=== PATIENT | female | born 1985 | race Caucasian/White ===

== ENCOUNTER → 2017-11-28 | Outpatient (CLI) | payer OTHER | LOC: SUN.DIA 11:10 | DX: O24.419 Gestational diabetes mellitus in pregnancy, unspecified control (principal); Z3A.31 31 weeks gestation of pregnancy; Z71.3 Dietary counseling and surveillance | CPT/HCPCS: G0108 ==

== ENCOUNTER → 2017-12-06 | Outpatient (CLI) | payer OTHER | LOC: SUN.DIA 12:22 | DX: O24.419 Gestational diabetes mellitus in pregnancy, unspecified control (principal); Z3A.32 32 weeks gestation of pregnancy; Z71.3 Dietary counseling and surveillance | CPT/HCPCS: G0108 ==

== ENCOUNTER → 2017-12-20 | Outpatient (CLI) | payer OTHER | LOC: SUN.DIA 12:19 | DX: O24.419 Gestational diabetes mellitus in pregnancy, unspecified control (principal); Z3A.34 34 weeks gestation of pregnancy; Z71.3 Dietary counseling and surveillance | CPT/HCPCS: G0108 ==

== ENCOUNTER → 2018-01-03 | Outpatient (CLI) | payer OTHER | LOC: SUN.DIA 13:38 | DX: O24.419 Gestational diabetes mellitus in pregnancy, unspecified control (principal); Z3A.36 36 weeks gestation of pregnancy; Z71.3 Dietary counseling and surveillance | CPT/HCPCS: G0108 ==

== ENCOUNTER 2018-01-19 10:04 | Outpatient (CLI) | payer OTHER ==
[~2018-01-19] VITALS: Ht 157.5 cm; Wt 78.6 kg
[2018-01-19 10:08] VITALS: BP 136/90; PULSE 80; TEMP 99
[2018-01-19] MEDS ORDERED: PRENATAL (10:13)
[2018-01-19 10:35] VITALS: BP 129/83; PULSE 71
== END 2018-01-19 10:45 | disposition home or self-care (01) ==
LOC: LDR 10:04 → LDRO 10:04
DX: Z04.3 Encounter for examination and observation following other accident (principal); O9A.213 Injury, poisoning and certain other consequences of external causes complicating pregnancy, third trimester; W00.0XXA Fall on same level due to ice and snow, initial encounter; Z3A.37 37 weeks gestation of pregnancy
CPT/HCPCS: OP

== ENCOUNTER → 2018-01-24 | Outpatient (CLI) | payer OTHER ==
[~2018-01-24] MED LIST: PRENATAL
== END ==
LOC: SUN.DIA 12:28
DX: O24.419 Gestational diabetes mellitus in pregnancy, unspecified control (principal); Z3A.39 39 weeks gestation of pregnancy; Z71.3 Dietary counseling and surveillance
CPT/HCPCS: G0108

== ENCOUNTER 2018-01-31 07:32 | Outpatient (CLI) | payer OTHER ==
[~2018-01-31] VITALS: Ht 157.5 cm; Wt 80.0 kg
[2018-01-31 07:38] VITALS: BP 127/85; PULSE 80; TEMP 98.1
[2018-02-01] MEDS ORDERED: PERCOCET 325 MG1 TA2 PO (17:58)
[2018-02-01] MEDS ORDERED: MOTRIN 800800 MG/TAB PO (17:58)
== END 2018-01-31 08:40 | disposition home or self-care (01) ==
LOC: LDR 07:32 → LDRO 07:32
DX: O46.8X3 Other antepartum hemorrhage, third trimester (principal); Z3A.39 39 weeks gestation of pregnancy
CPT/HCPCS: OP

== ENCOUNTER 2018-01-31 14:43 | Inpatient (IN) | payer OTHER ==
[2018-01-31] VITALS (23 sets, daily range): BP systolic 112–146; BP diastolic 60–92; PULSE 63–100; TEMP 97.6–98.3
[~2018-01-31] VITALS: Ht 157.5 cm; Wt 80.0 kg
[2018-01-31 16:29] LABS: BASO % 0.2 % (0.0-2.0); EOS % 0.2 % (0-4.0); GRAN # 10.7 (1.4-6.5); GRAN % 83.8 % (42.2-75.2); HEMATOCRIT 40.3 % (37.0-47.0); HEMOGLOBIN 13.7 g/dl (12.5-16.0); LYMPH # 1.3 (1.2-3.4); LYMPH % 10.3 % (20.0-51.0); MEAN CELL VOLUME 85 fl (80.0-100.0); MEAN CORPUSCULAR HEMOGLOBIN 29 pg (27.0-31.0); MEAN CORPUSCULAR HGB CONC 34 g/dl (33.0-37.0); MEAN PLATELET VOLUME 10.5 fl (7.4-10.4); MONO # 0.7 (0.1-0.6); MONO % 5.1 % (1.7-9.3); PLATELET COUNT 176 K/mm3 (130-400); RED BLOOD COUNT 4.75 M/mm3 (4.10-5.30); REDCELL DISTRIBUTION WIDTH-CV 12.9 % (11.5-14.5)
[2018-02-01] VITALS (18 sets, daily range): BP systolic 117–155; BP diastolic 68–93; PULSE 78–109; TEMP 97.6–99
[2018-02-01 16:52] LABS: BASO % 0.3 % (0.0-2.0); EOS # 0.1 (0.0-0.7); EOS % 0.7 % (0-4.0); GRAN # 10.9 (1.4-6.5); GRAN % 77.1 % (42.2-75.2); LYMPH # 2.2 (1.2-3.4); LYMPH % 15.1 % (20.0-51.0); MEAN CELL VOLUME 86 fl (80.0-100.0); MEAN CORPUSCULAR HGB CONC 34 g/dl (33.0-37.0); MEAN PLATELET VOLUME 10.7 fl (7.4-10.4); MONO # 0.9 (0.1-0.6); MONO % 6.4 % (1.7-9.3); PLATELET COUNT 150 K/mm3 (130-400); RED BLOOD COUNT 3.89 M/mm3 (4.10-5.30); REDCELL DISTRIBUTION WIDTH-CV 13.2 % (11.5-14.5)
[2018-02-01 16:53] LABS: HEMATOCRIT 33.3 % (37.0-47.0); HEMOGLOBIN 11.2 g/dl (12.5-16.0); MEAN CORPUSCULAR HEMOGLOBIN 29 pg (27.0-31.0)
[2018-02-01 17:00] LABS: ALBUMIN 2.9 gm/dL (3.5-5.0); BILIRUBIN,TOTAL 0.1 mg/dL (0.0-1.0); CALCIUM 8.3 mg/dL (8.4-10.2); CREATININE, serum 0.57 mg/dL (0.52-1.25); POTASSIUM 4.3 mmol/L (3.4-5.0); TOTAL PROTEIN 5.8 gm/dL (6.4-8.2)
[2018-02-01] MEDS ORDERED: PERCOCET 325 MG1 TA2 PO (17:58)
[2018-02-01] MEDS ORDERED: MOTRIN 800800 MG/TAB PO (17:58)
[2018-02-01 23:28] LABS: COLLECTION METHOD CLEAN CATCH
[2018-02-01 23:37] LABS: PH 6 (5-8); SQUAMOUS EPITHELIAL 0-2 /hpf; URINE APPEARANCE Clear; URINE BACTERIA None Seen /hpf; URINE BILIRUBIN Negative (NEGATIVE); URINE BLOOD 3+ (NEGATIVE); URINE COLOR Straw; URINE GLUCOSE Negative (NEGATIVE); URINE KETONE Negative (NEGATIVE); URINE LEUKOCYTE ESTERASE 2+ (NEGATIVE); URINE NITRATE Negative (NEGATIVE); URINE PROTEIN(semi-quant) Negative (NEGATIVE); URINE RBC 20-50 /hpf; URINE UROBILINOGEN Negative (NEGATIVE)
[2018-02-02 00:35] VITALS: BP 125/82; PULSE 86; TEMP 98.2
[2018-02-02 08:00] VITALS: BP 136/88; PULSE 99; TEMP 98.1
== END 2018-02-02 12:40 | disposition home or self-care (01) | DRG 774 ==
LOC: LDRO 14:43 → OB 15:25 → LDR 15:25 → OB 02-01 05:00
PROVIDERS: Obstetrics & Gynecology
PROC: 10D07Z6 Extraction of Products of Conception, Vacuum, Via Natural or Artificial Opening (ICD-10-PCS; principal; 2018-01-31)
PROC: 0KQM0ZZ Repair Perineum Muscle, Open Approach (ICD-10-PCS; 2018-01-31)
DX: O24.420 Gestational diabetes mellitus in childbirth, diet controlled (principal); O10.92 Unspecified pre-existing hypertension complicating childbirth; O76 Abnormality in fetal heart rate and rhythm complicating labor and delivery; O70.1 Second degree perineal laceration during delivery; O69.1XX0 Labor and delivery complicated by cord around neck, with compression, not applicable or unspecified; Z3A.39 39 weeks gestation of pregnancy; Z37.0 Single live birth
CPT/HCPCS: J2590; J2795; J7120

== ENCOUNTER → 2021-01-25 | Outpatient (CLI) | payer BC ==
[~2021-01-25] MED LIST changes: +MOTRIN 800800 MG/TAB PO; +NATURAL IRON65 MG; +PERCOCET 325 MG1 TA2 PO; +PROCARDIA XL 3030 MG PO
== END ==
LOC: DIA.ED
DX: O24.419 Gestational diabetes mellitus in pregnancy, unspecified control (principal); I10 Essential (primary) hypertension
CPT/HCPCS: G0108

== ENCOUNTER 2021-03-25 05:47 | Inpatient (IN) | payer BC ==
[2021-03-25] VITALS (40 sets, daily range): BP systolic 96–188; BP diastolic 62–103; PULSE 64–95; TEMP 97.3–97.9
[~2021-03-25] VITALS: Ht 157.6 cm; Wt 90.5 kg
[~2021-03-25 05:47] MED LIST changes: -NATURAL IRON65 MG; -PROCARDIA XL 3030 MG PO
--- NOTE | 2021-03-25 06:00 | NUR ---
Pt here for scheduled induction. Clean gown on. EFM and TOCO explained and applied. Pt reports haley kicks contraction irregularly. Denies leaking of fluids or vaginal bleeding. Reports good movement. Plan of care explained to pt and spouse. Call light within reach.
[2021-03-25] MEDS ORDERED: NATURAL IRON65 MG (07:25)
[2021-03-25] MEDS ORDERED: PROCARDIA XL 3030 MG PO (07:26)
[2021-03-25 08:14] LABS: BASO % 0.4 % (0.0-2.0); EOS # 0.1 (0.0-0.7); EOS % 0.9 % (0-4.0); GRAN # 4.7 (1.4-6.5); GRAN % 69.7 % (42.2-75.2); HEMATOCRIT 39.7 % (37.0-47.0); HEMOGLOBIN 12.9 g/dl (12.5-16.0); LYMPH # 1.5 (1.2-3.4); LYMPH % 21.7 % (20.0-51.0); MEAN CELL VOLUME 84 fl (80.0-100.0); MEAN CORPUSCULAR HEMOGLOBIN 27 pg (27.0-31.0); MEAN CORPUSCULAR HGB CONC 33 g/dl (33.0-37.0); MEAN PLATELET VOLUME 11.5 fl (7.4-10.4); MONO # 0.5 (0.1-0.6); MONO % 6.9 % (1.7-9.3); PLATELET COUNT 182 K/mm3 (130-400); RED BLOOD COUNT 4.73 M/mm3 (4.10-5.30); REDCELL DISTRIBUTION WIDTH-CV 14.8 % (11.5-14.5)
[2021-03-25 08:42] LABS: ALBUMIN 3.3 gm/dL (3.5-5.0); BILIRUBIN,TOTAL 0.1 mg/dL (0.0-1.0); CALCIUM 8.5 mg/dL (8.4-10.2); CREATININE, serum 0.44 (0.52-1.25); TOTAL PROTEIN 6.4 gm/dL (6.4-8.2)
--- NOTE | 2021-03-25 15:45 | NUR ---
0700 - IV started in RH, labs drawn, LR started per orders. Assessments completed, consents discussed and signed. Pt questions invited and answered. Pitocin started per orders at 0705. Pt positioned for comfort, denies further needs at this time. 0825 - Dr. Sepulveda to pt bedside. FHR strip reviewed, pt vitals and BP discussed. SVE per provider 2-3/70/-2. AROM at this time, clear fluid observed. 0835 - IV labetalol administered per physician orders 1100 - Uterine tachysystole noted. Pitocin halved to 7mu/ml/hr at 1105. 1116 - Variable decelerations noted over last 3 contractions. Difficulty tracing FHR at this time. FHR drops to 70s with intermittent tracing, FHRs in 100s noted. Pitocin stopped at 1116. 1118 - FSE discussed with pt. Verbal consent obtained and FSE applied at this time. Tracing well at 1120. Dr. Sepulveda notified. 1120 - Louise Red CRNA to bedside for epidural placement. Pt remains lying LR. Test dose given at 1135. Pt tolerated well. 1143 - Pt reporting rectal pressure with contractions. FHR WNL with variable decelrations noted. SVE while pt in LL position, 10/100/0. Dr. Sepulveda notified, called to facility. 1150 - Dr. Sepulveda to pt bedside, reviews FHR strip, pt repositioned for pushing. Physician pushes with pt, notes some cervix remains. Pushing stops at this time. Pt repositioned RL with peanut ball. 1200 - Pitocin restarted at 4mu/ml/hr per Dr. Sepulveda's orders. Variable declerations continue. Moderate variability remains. 1206 - SVE 10/100/0. 15 second variable with FHR in 60s with contraction at 1213. Variable deceleration noted again with contraction at 1216. Dr. Sepulveda notified, on way to unit. 1220 - Pt repositioned RL with LL in stirrup. FHR deceleration to 60s-80s for 2 mins, reaching 120s at 1222. Chandana Sparrow RN to bedside. Variable declerations continue with peak of contractions. Pt repositioned LL with RL in stirrup at 1228. 1230 - Dr. Sepulveda to pt bedside, reviews FHR strip. Per physician SVE 10/100/+2, starts pushing with pt at 1234. Chandana Sparrow RN to pt bedside. 1236 - FHR decerates into 50s-60s. Sincere So RN and Vinh Doe RN to bedside. Vacuum assist discussed with pt, verbal consent obtained. Dr. Sepulveda places vacuum at 1237. FSE disloged at 1238. Difficulty obtaining and tracing FHR with external toco. Pt continues pushing with physician and vacuum. 1240 - New FSE placed by Dr. Sepulveda, FHR tracing well. AT 1241, FHR drops into 60s. called at this time by Dr. Sepulveda, pt verbalizes consent. Pt taken to OR via bed at 1243.
--- NOTE | 2021-03-25 16:30 | NUR ---
X-Ray done in OR following procedure, clear. De La Torre placed in OR following procedure at 1315. Bloody urnine noted at beginning, clearing to pink tinged urine.
[2021-03-26 00:10] VITALS: BP 132/71; PULSE 81; TEMP 97.8
[2021-03-26 03:30] VITALS: BP 124/75; PULSE 88; TEMP 98.1
--- NOTE | 2021-03-26 07:07 | NUR ---
REPORT RECEIVED FROM OFF GOING RN, SUHBA Carrillo CARE TAKEN OVER BY THIS RN.
[2021-03-26 08:53] VITALS: BP 147/89; PULSE 85; TEMP 98.2
[2021-03-26] MEDS ORDERED: MOTRIN 800800 MG/TAB PO (11:31)
[2021-03-26] MEDS ORDERED: PERCOCET 325 MG1 TA2 PO (11:31)
--- NOTE | 2021-03-26 12:40 | NUR ---
Initial visit; Parents thanked Olive Picker for offering congratulations and God's blessings for the of their son. Olive Picker thanked family for choosing [place].
--- NOTE | 2021-03-26 15:04 | NUR ---
CALL TO DR. QUIROZ FOR PROCARDIA ORDERS FOR DISCHARGE. TORB TO CALL IN 30 MG PROCARDIA XL QD. RX CALLED INTO PHARMACY BY THIS RN: PROCARDIA XL 30 MG QD #30 WITH 0 REFILLS. DISCHARGE INSTRUCTIONS GIVEN TO PATIENT. QUESTIONS INVITED AND ANSWERED.
== END 2021-03-26 16:05 | disposition home or self-care (01) | DRG 788 ==
LOC: LDR 05:47 → OB 14:40
PROVIDERS: ADMIT Obstetrics & Gynecology
PROC: 10D00Z1 Extraction of Products of Conception, Low, Open Approach (ICD-10-PCS; principal; 2021-03-25)
DX: O11.4 Pre-existing hypertension with pre-eclampsia, complicating childbirth (principal); Z37.0 Single live birth; O24.420 Gestational diabetes mellitus in childbirth, diet controlled; O99.824 Streptococcus B carrier state complicating childbirth; O99.02 Anemia complicating childbirth; D64.9 Anemia, unspecified; O34.13 Maternal care for benign tumor of corpus uteri, third trimester; D25.9 Leiomyoma of uterus, unspecified; Z3A.37 37 weeks gestation of pregnancy
CPT/HCPCS: J0690; J1885; J2370; J2400; J2405; J2540; J2590; J7120